=== PATIENT | male | born 1975 | race Caucasian/White ===

== ENCOUNTER 2022-01-23 12:14 | Day surgery (SDC) | payer BC ==
[2022-01-23] MEDS ORDERED: LIDOCAINE HCL 2% 100 MG/5 ML IJ ONE (12:15)
[2022-01-23] MEDS ORDERED: Lactated Ringers 1,000 ML IV ONE (14:03)
[2022-01-23] MEDS ORDERED: DIPRIVAN 200 MG/20 ML IV ONE (14:33)
--- NOTE | 2022-01-23 16:42 | XRAY ---
Indication: Left C3-C5 MBB. Intraoperative fluoroscopy provided for 28 seconds. 5 digital spot image submitted for interpretation demonstrates posterior needle tips projecting over the expected left C3-C5 nerve roots. Correlate with intraoperative findings/report. Incidental lower cervical fusion hardware.
== END 2022-01-23 15:15 | disposition home or self-care (01) ==
LOC: SDC-PAIN 12:14
PROVIDERS: ATTEND Psychiatry & Neurology Pain Medicine
DX: M47.812 Spondylosis without myelopathy or radiculopathy, cervical region (principal); Z79.899 Other long term (current) drug therapy
CPT/HCPCS: 64490; 64491; 72040; 77002; J2704

== ENCOUNTER 2022-02-20 12:00 | Day surgery (SDC) | payer BC ==
[2022-02-20] MEDS ORDERED: BUPIVACAINE 0.5% VIAL IJ ONE (12:01)
[2022-02-20] MEDS ORDERED: Decadron 4 MG INJ IV ONE (12:01)
[2022-02-20] MEDS ORDERED: DIPRIVAN 200 MG/20 ML IV ONE ×2 (14:14→14:29)
[2022-02-20] MEDS ORDERED: Zofran 4 MG/2 ML VIAL ONE (14:18)
[2022-02-20] MEDS ORDERED: Lactated Ringers 1,000 ML IV ONE (14:33)
--- NOTE | 2022-02-20 15:22 | XRAY ---
Indication: Left C3-C5 MBB. Intraoperative fluoroscopy provided for 48 seconds. 2 digital spot images submitted for interpretation demonstrates posterior needle tips projecting over the expected left C3-C5 nerve roots. Correlate with intraoperative findings/report.
--- NOTE | 2022-02-20 15:24 | XRAY ---
48 seconds fluoroscopy time in surgery for left C3-C5 MBB.
== END 2022-02-20 14:45 | disposition home or self-care (01) ==
LOC: SDC-PAIN 12:00
PROVIDERS: ATTEND Psychiatry & Neurology Pain Medicine
DX: M47.812 Spondylosis without myelopathy or radiculopathy, cervical region (principal); Z79.899 Other long term (current) drug therapy
CPT/HCPCS: 64490; 64491; 72040; 77002; J1100; J2405; J2704

== ENCOUNTER 2022-03-21 11:44 | Day surgery (SDC) | payer BC ==
[2022-03-21] MEDS ORDERED: Decadron 4 MG INJ IV ONE (11:45)
[2022-03-21] MEDS ORDERED: LIDOCAINE HCL 1% 50 MG/5 ML VL PF IJ ONE (11:45)
[2022-03-21] MEDS ORDERED: BUPIVACAINE 0.5% VIAL IJ ONE (11:45)
[2022-03-21] MEDS ORDERED: Lactated Ringers 1,000 ML IV ONE (13:31)
[2022-03-21] MEDS ORDERED: DIPRIVAN 200 MG/20 ML IV ONE ×2 (13:42→13:55)
--- NOTE | 2022-03-21 14:59 | XRAY ---
Indication: Left C3-C5 RFA Intraoperative fluoroscopy provided for 55 seconds. 2 digital spot images submitted for interpretation demonstrates posterior needle tips projecting over the expected left C3-C5 nerve roots. Correlate with intraoperative findings/report. Incidental lower cervical fusion hardware.
--- NOTE | 2022-03-21 15:01 | XRAY ---
55 seconds fluoroscopy time in surgery for left C3-C5 RFA.
== END 2022-03-21 14:15 | disposition home or self-care (01) ==
LOC: SDC-PAIN 11:44
PROVIDERS: ATTEND Psychiatry & Neurology Pain Medicine
DX: M47.812 Spondylosis without myelopathy or radiculopathy, cervical region (principal)
CPT/HCPCS: 64635; 64636; 72040; 77002; J1100; J2001; J2704